=== PATIENT | male | born 1995 | race Caucasian/White ===

== ENCOUNTER 2023-02-09 06:57 | Emergency (ER) | payer BC, OTHER ==
[2023-02-09] MEDS ORDERED: Ketorolac 30 MG/ML SDV IVPUSH ONE (07:18)
[2023-02-09] MEDS ORDERED: Sodium Chloride 0.9% 1,000 ML IV ONE (07:18)
[2023-02-09] MEDS: Metoclopramide 10 MG/2 ML SDV IM ONE ×2 (07:24→07:29)
[2023-02-09] MEDS ORDERED: Metoclopramide 10 MG/2 ML SDV IVPUSH ONE (07:30)
== END 2023-02-09 08:56 | disposition home or self-care (01) ==
LOC: MW.ED 06:57
DX: G43.909 Migraine, unspecified, not intractable, without status migrainosus (principal)
CPT/HCPCS: 82947; 96361; 96374; 96375; 99284; J1885; J2765; J7030

== ENCOUNTER 2023-10-17 19:37 | Observation (INO) | payer SELFPAY ==
[2023-10-17] MEDS ORDERED: Naloxone 0.4 MG/ML SDV IVPUSH PRN (19:45)
[2023-10-17] MEDS ORDERED: Morphine 4 MG/ML Syringe IVPUSH ONE (19:45)
[2023-10-17] MEDS ORDERED: Famotidine 20 MG/2 ML SDV IVPUSH ONE (19:45)
[2023-10-17] MEDS ORDERED: Ondansetron 4 MG/2 ML SDV IVPUSH ONE (19:45)
[2023-10-17] MEDS ORDERED: Sodium Chloride 0.9% 1,000 ML IV ONE (19:45)
[2023-10-17] MEDS ORDERED: Sodium Chloride 0.9% 2.5 ML Syringe FLUSH PRN (19:45)
[2023-10-17] MEDS ORDERED: Sodium Chloride 0.9% 10 ML Syringe FLUSH PRN (19:45)
[2023-10-17 20:04] LABS: BASOPHILS ABSOLUTE AUTO 0.06 K/uL (0.00-0.20); BASOPHILS PERCENT AUTO 0.9 % (0.0-1.0); EOSINOPHILS ABSOLUTE AUTO 0.29 K/uL (0.00-0.45); EOSINOPHILS PERCENT AUTO 4.2 % (0.0-6.0); HEMATOCRIT 47.3 % (42.0-52.0); HEMOGLOBIN 16.7 g/dL (14.0-18.0); IMMATURE GRAN ABSOLUTE AUTO 0.01 K/uL (0.00-0.05); IMMATURE GRAN PERCENT AUTO 0.1 % (0.0-0.4); LYMPHOCYTES ABSOLUTE AUTO 1.75 K/uL (1.00-4.80); LYMPHOCYTES PERCENT AUTO 25.4 % (24.0-44.0); MEAN CORPUSCULAR HEMOGLOBIN 30.1 pg (28.0-32.0); MEAN CORPUSCULAR HGB CONC 35.3 g/dL (32.0-36.0); MEAN CORPUSCULAR VOLUME 85.4 fL (83.0-99.0); MEAN PLATELET VOLUME 8.6 fL (9.4-12.4); MONOCYTES ABSOLUTE AUTO 0.42 K/uL (0.00-0.80); MONOCYTES PERCENT AUTO 6.1 % (0.0-8.0); NEUTROPHILS ABSOLUTE AUTO 4.37 K/uL (1.80-7.70); NEUTROPHILS PERCENT AUTO 63.3 % (41.0-71.0); PLATELET COUNT,PLT 283 K/uL (150-400); RED BLOOD CELL COUNT 5.54 M/uL (4.52-5.90)
[2023-10-17 20:26] LABS: ALBUMIN 3.9 g/dL (3.4-5.0); BILIRUBIN TOTAL 0.3 mg/dL (0.2-1.0); CALCIUM 8.9 mg/dL (8.5-10.1); CARBON DIOXIDE,CO2 30.7 mmol/L (21.0-32.0); CREATININE 0.9 mg/dL (0.8-1.3); EST CRCL DRUG DOSING (CG) 135.63 mL/min; POTASSIUM,K 3.9 mmol/L (3.5-5.1)
[2023-10-17 21:28] LABS: APPEARANCE,URINE CLEAR; BILIRUBIN,URINE NEGATIVE (NEGATIVE); COLOR,URINE YELLOW; GLUCOSE,URINE NEGATIVE (NEGATIVE); KETONES,URINE NEGATIVE (NEGATIVE); LEUKOCYTE ESTERASE,URINE NEGATIVE (NEGATIVE); NITRITE,URINE NEGATIVE (NEGATIVE); OCCULT BLOOD,URINE NEGATIVE (NEGATIVE); PROTEIN,URINE NEGATIVE (NEGATIVE); UROBILINOGEN,URINE 0.2 EU/dL (<2.0)
[2023-10-17] MEDS ORDERED: Dicyclomine 10 MG Cap PO ONE (22:56)
[2023-10-17] MEDS ORDERED: Piperacillin/Tazobactam 3.375 GM in Sodium Chloride 0.9% 100 ML IV ONE ×2 (23:08→23:29)
[2023-10-17] MEDS ORDERED: Ondansetron 4 MG/2 ML SDV IVPUSH PRN (23:29)
[2023-10-17] MEDS: Lactated Ringers 1,000 ML IV SCH (23:46)
[2023-10-18] MEDS: Lactated Ringers 1,000 ML IV SCH (00:46)
[2023-10-18] MEDS: Piperacillin/Tazobactam 3.375 GM in Sodium Chloride 0.9% 100 ML IV SCH ×2 (05:16→12:40)
[2023-10-18] MEDS ORDERED: Pantoprazole 80 MG in Sodium Chloride 0.9% 20 ML IVPUSH ONE (08:36)
[2023-10-18] MEDS ORDERED: Iopamidol 755 MG/ML 500 ML Multipack Bottle IVPUSH STA (08:41)
[2023-10-18] MEDS ORDERED: Ropivacaine 0.5% 5 MG/ML 30 ML SDV ONE (10:12)
[2023-10-18] MEDS ORDERED: Famotidine 20 MG/2 ML SDV ONE (10:12)
[2023-10-18] MEDS ORDERED: fentaNYL 250 MCG/5 ML SDV ONE (10:15)
[2023-10-18] MEDS ORDERED: Morphine 10 MG/ML SDV ONE (10:15)
[2023-10-18] MEDS ORDERED: Propofol 200 MG/20 ML SDV ONE (10:15)
[2023-10-18] MEDS ORDERED: Bupivacaine 0.5% 30 ML SDV ONE (10:31)
[2023-10-18] MEDS ORDERED: Succinylcholine/Sod PF 100 MG/5 ML SYRINGE IV ONE (11:24)
[2023-10-18] MEDS ORDERED: Glycopyrrolate 0.2 MG/ML SDV ONE (11:24)
[2023-10-18] MEDS ORDERED: diphenhydrAMINE 50 MG/ML SDV ONE (11:24)
[2023-10-18] MEDS ORDERED: Lidocaine 2% 11 ML Jelly Filled Syringe ONE (11:24)
[2023-10-18] MEDS ORDERED: Dexamethasone 4 MG/ML 5 ML MDV ONE (11:24)
[2023-10-18] MEDS ORDERED: Ondansetron 4 MG/2 ML SDV ONE (11:24)
[2023-10-18] MEDS ORDERED: Rocuronium Bromide 50 MG/5 ML Syringe ONE (11:24)
[2023-10-18] MEDS ORDERED: Indocyanine Green 25 MG SDV ONE (11:24)
[2023-10-18] MEDS ORDERED: fentaNYL 100 MCG/2 ML SDV ONE (11:30)
[2023-10-18] MEDS ORDERED: HYDROmorphone 2 MG/ML Syringe ONE (11:53)
[2023-10-18] MEDS ORDERED: Acetaminophen/HYDROcodone 325-10 MG Tab PO PRN (12:15)
[2023-10-18] MEDS ORDERED: Ondansetron 4 MG/2 ML SDV IVPUSH PRN (12:16)
[2023-10-18] MEDS ORDERED: Bisacodyl 5 MG Tab PO PRN (12:16)
[2023-10-18] MEDS ORDERED: Ketorolac 30 MG/ML SDV ONE (12:30)
[2023-10-18] MEDS ORDERED: Sugammadex Sodium 200 MG/2 ML VIAL ONE (12:30)
[2023-10-18] MEDS: HYDROmorphone 2 MG/ML Syringe IVPUSH PRN ×3 (16:23→23:02)
[2023-10-18] MEDS: Ketorolac 30 MG/ML SDV IVPUSH SCH (18:43)
[2023-10-19] MEDS: Ketorolac 30 MG/ML SDV IVPUSH SCH ×2 (00:21→06:32)
[2023-10-19] MEDS ORDERED: Pantoprazole 40 MG Tab.CR PO SCH (07:30)
[2023-10-19] MEDS ORDERED: Bisacodyl 5 MG Tab PO ONE (09:47)
== END 2023-10-19 11:00 | disposition home or self-care (01) ==
LOC: MW.ED 19:37 → MW.MS 23:07
PROVIDERS: ADMIT Surgery; ATTEND Surgery
DX: K81.1 Chronic cholecystitis (principal); K42.9 Umbilical hernia without obstruction or gangrene; K21.9 Gastro-esophageal reflux disease without esophagitis; F17.210 Nicotine dependence, cigarettes, uncomplicated; Z79.899 Other long term (current) drug therapy
CPT/HCPCS: 36415; 47562; 49591; 74177; 76705; 80053; 81003; 82947; 83690; 85025; 96361; 96365; 96366; 96375; 96376; 99285; A9270; C9113; G0378; J0131; J0330; J1100; J1170; J1200; J1885; J2270; J2405; J2543; J2704; J2795; J3010; J3490; J7030; J7120; Q9967; 00790; 96374; 99284; J0665

== ENCOUNTER 2023-11-03 16:45 | Emergency (ER) | payer SELFPAY ==
[2023-11-03] MEDS ORDERED: Sodium Chloride 0.9% 1,000 ML IV ONE (17:27)
[2023-11-03 17:55] LABS: BASOPHILS ABSOLUTE AUTO 0.04 K/uL (0.00-0.20); BASOPHILS PERCENT AUTO 0.6 % (0.0-1.0); EOSINOPHILS ABSOLUTE AUTO 0.21 K/uL (0.00-0.45); EOSINOPHILS PERCENT AUTO 2.9 % (0.0-6.0); HEMATOCRIT 45.6 % (42.0-52.0); HEMOGLOBIN 16.3 g/dL (14.0-18.0); IMMATURE GRAN ABSOLUTE AUTO 0.01 K/uL (0.00-0.05); IMMATURE GRAN PERCENT AUTO 0.1 % (0.0-0.4); LYMPHOCYTES ABSOLUTE AUTO 1.55 K/uL (1.00-4.80); LYMPHOCYTES PERCENT AUTO 21.5 % (24.0-44.0); MEAN CORPUSCULAR HEMOGLOBIN 29.9 pg (28.0-32.0); MEAN CORPUSCULAR HGB CONC 35.7 g/dL (32.0-36.0); MEAN CORPUSCULAR VOLUME 83.7 fL (83.0-99.0); MEAN PLATELET VOLUME 8.9 fL (9.4-12.4); MONOCYTES ABSOLUTE AUTO 0.48 K/uL (0.00-0.80); MONOCYTES PERCENT AUTO 6.6 % (0.0-8.0); NEUTROPHILS ABSOLUTE AUTO 4.93 K/uL (1.80-7.70); NEUTROPHILS PERCENT AUTO 68.3 % (41.0-71.0); PLATELET COUNT,PLT 261 K/uL (150-400); RED BLOOD CELL COUNT 5.45 M/uL (4.52-5.90); WHITE BLOOD CELL COUNT,WBC 7.22 K/uL (3.9-11.3)
[2023-11-03] MEDS ORDERED: Iopamidol 755 MG/ML 500 ML Multipack Bottle IVPUSH STA (17:55)
[2023-11-03 18:16] LABS: A/G RATIO 1.1 (0.9-1.6); ALBUMIN 4.1 g/dL (3.4-5.0); BILIRUBIN TOTAL 0.5 mg/dL (0.2-1.0); CARBON DIOXIDE,CO2 29.2 mmol/L (21.0-32.0); EST CRCL DRUG DOSING (CG) 129.1 mL/min; POTASSIUM,K 3.9 mmol/L (3.5-5.1); PROTEIN TOTAL,TP 7.8 g/dL (6.4-8.2)
[2023-11-03] MEDS ORDERED: Cephalexin 500 MG Cap PO ONE (19:22)
== END 2023-11-03 19:32 | disposition home or self-care (01) ==
LOC: MW.ED 16:45
DX: L76.82 Other postprocedural complications of skin and subcutaneous tissue (principal); K21.9 Gastro-esophageal reflux disease without esophagitis; Z90.49 Acquired absence of other specified parts of digestive tract
CPT/HCPCS: 36415; 74177; 80053; 85025; 99284; A9270; J7030; Q9967

== ENCOUNTER 2024-04-01 07:54 | Emergency (ER) | payer SELFPAY ==
[2024-04-01 08:09] LABS: BASOPHILS ABSOLUTE AUTO 0.05 K/uL (0.00-0.20); BASOPHILS PERCENT AUTO 0.7 % (0.0-1.0); EOSINOPHILS ABSOLUTE AUTO 0.07 K/uL (0.00-0.45); HEMATOCRIT 49.7 % (42.0-52.0); HEMOGLOBIN 17.9 g/dL (14.0-18.0); IMMATURE GRAN ABSOLUTE AUTO 0.01 K/uL (0.00-0.05); IMMATURE GRAN PERCENT AUTO 0.1 % (0.0-0.4); LYMPHOCYTES ABSOLUTE AUTO 1.51 K/uL (1.00-4.80); LYMPHOCYTES PERCENT AUTO 21.5 % (24.0-44.0); MEAN CORPUSCULAR HEMOGLOBIN 29.9 pg (28.0-32.0); MEAN CORPUSCULAR VOLUME 83.1 fL (83.0-99.0); MEAN PLATELET VOLUME 8.8 fL (9.4-12.4); MONOCYTES ABSOLUTE AUTO 0.64 K/uL (0.00-0.80); MONOCYTES PERCENT AUTO 9.1 % (0.0-8.0); NEUTROPHILS ABSOLUTE AUTO 4.75 K/uL (1.80-7.70); NEUTROPHILS PERCENT AUTO 67.6 % (41.0-71.0); PLATELET COUNT,PLT 303 K/uL (150-400); RED BLOOD CELL COUNT 5.98 M/uL (4.52-5.90); WHITE BLOOD CELL COUNT,WBC 7.03 K/uL (3.9-11.3)
[2024-04-01] MEDS: Sodium Chloride 0.9% 2.5 ML Syringe FLUSH PRN (08:09)
[2024-04-01] MEDS: Sodium Chloride 0.9% 1,000 ML IV STA ×2 (08:09→10:07)
[2024-04-01] MEDS: Sodium Chloride 0.9% 10 ML Syringe FLUSH PRN (08:09)
[2024-04-01 08:45] LABS: ALBUMIN 4.6 g/dL (3.4-5.0); BILIRUBIN TOTAL 1.6 mg/dL (0.2-1.0); CALCIUM 9.5 mg/dL (8.5-10.1); CARBON DIOXIDE,CO2 21.6 mmol/L (21.0-32.0); CREATININE 1.1 mg/dL (0.8-1.3); EST CRCL DRUG DOSING (CG) 126.94 mL/min; POTASSIUM,K 3.5 mmol/L (3.5-5.1)
[2024-04-01 08:47] LABS: A/G RATIO 1.1 (0.9-1.6)
[2024-04-01 08:51] LABS: ACETAMINOPHEN <2.0 ug/mL; CREATINE KINASE,CK 496 U/L (26-308); SALICYLATE 0.7 mg/dL (0.0-20.0)
[2024-04-01 08:53] LABS: ETHANOL BLOOD MEDICAL < 3.0 mg/dL
[2024-04-01 11:56] LABS: AMPHETAMINES SCREEN, URINE PRESUMPTIVE POSITIVE (CUTOFF=500); BARBITURATE SCREEN,URINE NEGATIVE (CUTOFF=200); BENZODIAZEPINES SCREEN,URINE NEGATIVE (CUTOFF=150); BUPRENORPHINE SCREEN,URINE NEGATIVE (CUTOFF=10); METHADONE SCREEN, URINE NEGATIVE (CUTOFF=200); METHAMPHETAMINES SCREEN, URINE PRESUMPTIVE POSITIVE (CUTOFF=500); OXYCODONE SCREEN,URINE NEGATIVE (CUT0FF=100); PCP SCREEN,URINE NEGATIVE (CUTOFF=25); THC SCREEN,URINE 20 NG/ML NEGATIVE (CUTOFF=50)
== END 2024-04-01 12:11 | disposition home or self-care (01) ==
LOC: MW.ED 07:54
DX: M62.82 Rhabdomyolysis (principal); R41.82 Altered mental status, unspecified; Z75.8 Other problems related to medical facilities and other health care
CPT/HCPCS: 36415; 70450; 80053; 80143; 80179; 80305; 80307; 82550; 84484; 85025; 93005; 96360; 96361; 99285; J3490; J7030; 93010; 99282